=== PATIENT | female | born 1950 | race Caucasian/White ===

== ENCOUNTER 2019-01-13 20:49 | Inpatient (IN) | payer BC ==
[~2019-01-13] VITALS: Ht 160 cm; Wt 70.3 kg
[2019-01-13] MEDS ORDERED: ALBUTEROL SULFATE 2.5 MG/3 ML NEBU NEB ONE (21:00)
[2019-01-13] MEDS ORDERED: IV NORMAL SALINE 1000 ML BAG IV ONE ×2 (21:00→21:45)
[2019-01-13] MEDS ORDERED: IPRATROPIUM BROMIDE 0.5 MG/2.5 ML NEBU NEB ONE (21:00)
[2019-01-13] MEDS ORDERED: BENZ200C53 PO (21:05)
[2019-01-13] MEDS ORDERED: ALBU18HF2 INH (21:05)
[2019-01-13] MEDS ORDERED: AZIT250T PO (21:05)
[2019-01-13] MEDS ORDERED: PRED10TA23 PO (21:05)
--- NOTE | 2019-01-13 21:05 | NUR ---
Dr. Maloney at bedside for MSE
[2019-01-13 21:14] LABS: BASOPHILS % (AUTO) 0.3 % (0.0-2.0); HEMOGLOBIN 11.7 g/dL (10.9-14.3); LYMPHOCYTES # (AUTO) 1.9 K/uL (20.0-40.0); LYMPHOCYTES % (AUTO) 12.6 % (20.5-51.5); MEAN CORPUSCULAR HEMOGLOBIN 30.7 uug (24.7-32.8); MEAN CORPUSCULAR HGB CONC 33 g/dL (32.3-35.6); MEAN CORPUSCULAR VOLUME 92.2 fL (75.5-95.3); MONOCYTES # (AUTO) 0.7 K/uL (2.0-10.0); MONOCYTES % (AUTO) 4.5 % (0.0-11.0); NEUTROPHILS # (AUTO) 12.4 K/uL (1.8-8.9); NEUTROPHILS % (AUTO) 82.6 % (38.5-71.5); PLATELET COUNT (AUTO) 291 K/uL (179-408)
[2019-01-13 21:21] LABS: CREATININE 1.4 mg/dL (0.6-1.3); POTASSIUM 4.3 mmol/L (3.5-5.1)
[2019-01-13] MEDS ORDERED: CEFTRIAXONE /D5W 50ML IVPB **ER PYXIS IV ONE (21:23)
[2019-01-13] MEDS ORDERED: ALBUTEROL SULFATE 2.5 MG/3 ML NEBU ONE (21:26)
[2019-01-13] MEDS ORDERED: IPRATROPIUM BROMIDE 0.5 MG/2.5 ML NEBU ONE (21:26)
[2019-01-13] MEDS ORDERED: AZITHROMYCIN IV 500 MG in IV DEXTROSE 5% 250 ML IV ONE (21:30)
[2019-01-13] MEDS ORDERED: CEFTRIAXONE 2 G in IV DEXTROSE 5% 100 ML IV ONE (21:30)
[2019-01-13 21:34] LABS: BILIRUBIN,DIRECT 0.2 mg/dL (0.0-0.2); BILIRUBIN,TOTAL 0.5 mg/dL (0.2-1.0); TOTAL PROTEIN, SERUM 7.9 g/dL (6.4-8.2)
[2019-01-13] MEDS ORDERED: AZITHROMYCIN 500MG/ D5W 250ML IVPB **ER PYXIS ONLY IV ONE (22:05)
--- NOTE | 2019-01-13 22:07 | NUR ---
patient in bed with family at bedside. Breathing even and unlabored. NAD noted.
[2019-01-13] MEDS ORDERED: ACETAMINOPHEN 325 MG TABLET PO PRN (22:45)
[2019-01-13] MEDS ORDERED: MORPHINE SULFATE 2 MG/1 ML DISP.SYRIN IV PRN ×2 (22:45)
[2019-01-13] MEDS ORDERED: ONDANSETRON 4 MG/2 ML VIAL IV PRN (22:45)
[2019-01-13 22:46] LABS: *BILIRUBIN,URIN NEGATIVE (NEGATIVE); *BLOOD, URINE 1+ (NEGATIVE); *CLARITY,URINE CLEAR (CLEAR); *COLOR,URINE YELLOW (YELLOW); *KETONES,URINE NEGATIVE (NEGATIVE); *UROBILINOGEN,URINE 0.2 E.U./dl (NORMAL); LEUKOCYTE ESTERASE ,URINE NEGATIVE (NEGATIVE); NITRITE, URINE NEGATIVE (NEGATIVE); UGLUCOSE NEGATIVE (NEGATIVE)
[2019-01-13 22:50] VITALS: BP 155/74
[2019-01-13 23:08] LABS: BACTERIA,URINE NONE SEEN /HPF (NONE SEEN); RBC,URINE 0-3 /HPF (0-3); SQUAMOUS EPITHELIAL CELL,UR FEW /HPF (NONE SEEN); WBC,URINE 0-3 /HPF (0-3)
[2019-01-13] MEDS ORDERED: hydrALAZINE HCL 25 MG TABLET PO SCH (23:15)
--- NOTE | 2019-01-13 23:15 | NUR ---
Endorsed to Kayla MASON remainder of fluid challenge
[2019-01-13] MEDS: ZOLPIDEM 5 MG TABLET PO PRN (23:43)
[2019-01-14] MEDS: IV NS 1000 ML 1,000 ML IV PRN ×2 (00:14→19:44)
[2019-01-14 00:36] VITALS: BP 140/71
[2019-01-14] MEDS ORDERED: GUAIFENESIN/DEXTROMETHORPHAN 5 ML UDC PO PRN (00:45)
[2019-01-14] MEDS: ALBUTEROL SULFATE 2.5 MG/3 ML NEBU NEB PRN ×2 (01:22→06:14)
[2019-01-14 04:00] VITALS: BP 152/80
[2019-01-14] MEDS ORDERED: SIMV-49 PO (05:36)
[2019-01-14] MEDS ORDERED: TRIA1CAP6 PO (05:37)
[2019-01-14] MEDS: hydrALAZINE HCL 25 MG TABLET PO PRN (05:41)
--- NOTE | 2019-01-14 06:13 | NUR ---
patient received from ER. ID band on. belongings list signed. admissions process complete. no signs of acute distress and v/s stable throughout shift. admit orders received. Dr. triplett placed order for Ambien 10mg qhs prn. Darien Duong, placed order for Robitussin DM q6h prn for cough. administered both medications and patient tolerated well. critical lab value reported to me for LA at 3.0, Dr. Triplett contacted, no new orders. safety and comfort measures provided. bed in lowest position, side rails up x2, and bed alarm on. NSR on tele monitor. will continue plan of care and endorse to morning shift accordingly.
--- NOTE | 2019-01-14 06:13 | NUR ---
hydralazine administered for bp >150. patient tolerated well. will f/u.
[2019-01-14] MEDS: PANTOPRAZOLE SODIUM 40 MG TABLET.DR PO SCH (06:23)
[2019-01-14 06:53] LABS: BASOPHILS # (AUTO) 0.1 K/uL (0.0-8.0); BASOPHILS % (AUTO) 0.7 % (0.0-2.0); EOSINOPHILS % (AUTO) 0.1 % (0.0-7.0); HEMATOCRIT 30.7 % (31.2-41.9); HEMOGLOBIN 10.3 g/dL (10.9-14.3); LYMPHOCYTES # (AUTO) 2.5 K/uL (20.0-40.0); LYMPHOCYTES % (AUTO) 18.7 % (20.5-51.5); MEAN CORPUSCULAR HEMOGLOBIN 31.2 uug (24.7-32.8); MEAN CORPUSCULAR HGB CONC 34 g/dL (32.3-35.6); MEAN CORPUSCULAR VOLUME 92.8 fL (75.5-95.3); MONOCYTES # (AUTO) 1.3 K/uL (2.0-10.0); MONOCYTES % (AUTO) 9.3 % (0.0-11.0); NEUTROPHILS # (AUTO) 9.6 K/uL (1.8-8.9); NEUTROPHILS % (AUTO) 71.2 % (38.5-71.5); PLATELET COUNT (AUTO) 243 K/uL (179-408); WHITE BLOOD COUNT (AUTO) 13.5 K/uL (3.8-11.8)
[2019-01-14 07:16] LABS: THYROID STIMULATING HORMONE 1.467 mIU/mL (0.358-3.740)
[2019-01-14 07:23] LABS: BILIRUBIN,TOTAL 0.2 mg/dL (0.2-1.0); CREATININE 1.2 mg/dL (0.6-1.3); MAGNESIUM 2.2 mg/dL (1.8-2.4); PHOSPHOROUS 2.8 mg/dL (2.5-4.9); POTASSIUM 3.7 mmol/L (3.5-5.1); TOTAL PROTEIN, SERUM 6.3 g/dL (6.4-8.2)
--- NOTE | 2019-01-14 07:47 | NUR ---
critical lab value reported to me by WALLACE viera 2.8 trending in expected direction. MD will not be contacted. will endorse to morning nurse to continue to monitor.
--- NOTE | 2019-01-14 08:15 | NUR ---
Received patient awake in bed. AAOx4. Productive cough noted. IV on R AC intact and patent with IVF fluids at this time. Call light within reach. Will continue to monitor.
[2019-01-14] MEDS: GUAIFENESIN/DEXTROMETHORPHAN 5 ML UDC PO SCH ×5 (08:16→23:37)
[2019-01-14] MEDS: BENZONATATE 100 MG CAPSULE PO SCH ×3 (08:19→22:15)
[2019-01-14] MEDS ORDERED: TRIAMTERENE/HCTZ 37.5-25 MG TABLET PO SCH (09:00)
[2019-01-14] MEDS ORDERED: Medication Not On Formulary EA (Triamterene/Hydrochlorothiazid (Triamterene-Hctz 37.5-25 PO SCH (09:00)
[2019-01-14 11:07] VITALS: BP 146/61
[2019-01-14] MEDS: ALBUTEROL SULFATE 1.25 MG/3 ML NEBU NEB SCH ×4 (11:12→23:28)
[2019-01-14] MEDS: IPRATROPIUM BROMIDE 0.5 MG/2.5 ML NEBU NEB SCH ×4 (11:12→23:28)
[2019-01-14] MEDS: TRIAMTERENE/HCTZ 75-50 MG TABLET PO SCH (12:30)
[2019-01-14] MEDS: methylPREDNISolone SOD SUCC 40 MG/ML VIAL IV SCH ×3 (12:31→22:14)
[2019-01-14 15:11] VITALS: BP 143/63
[2019-01-14] MEDS: BENZOCAINE/MENTH/CETYLPYRD LOZENGE MM PRN ×2 (15:59→22:15)
[2019-01-14 16:42] LABS: *BILIRUBIN,URIN NEGATIVE (NEGATIVE); *BLOOD, URINE NEGATIVE (NEGATIVE); *CLARITY,URINE CLEAR (CLEAR); *COLOR,URINE YELLOW (YELLOW); *KETONES,URINE NEGATIVE (NEGATIVE); *UROBILINOGEN,URINE 0.2 E.U./dl (NORMAL); LEUKOCYTE ESTERASE ,URINE NEGATIVE (NEGATIVE); NITRITE, URINE NEGATIVE (NEGATIVE); PH,URINE 5.5 (5.0-8.0); UGLUCOSE NEGATIVE (NEGATIVE)
[2019-01-14 17:10] LABS: *CREATININE,URINE 39.7 mg/dL (30-125); *URINE TOTAL PROTEIN RANDOM 19.7 mg/dL (<150/24HR)
[2019-01-14] MEDS ORDERED: SIMVASTATIN 40 MG TABLET PO SCH (18:00)
--- NOTE | 2019-01-14 18:00 | NUR ---
Patient to have dry cough at this time. Verbalize to feel a little better. All needs met. Safety measures implemented. Will endorse care accordingly.
[2019-01-14] MEDS: CEFTRIAXONE 1 G in IV DEXTROSE 5% 50 ML IV SCH (20:12)
[2019-01-14 20:58] VITALS: BP 139/54
[2019-01-14] MEDS: AZITHROMYCIN IV 500 MG in IV DEXTROSE 5% 250 ML IV SCH (22:14)
[2019-01-14] MEDS: ZOLPIDEM 5 MG TABLET PO PRN (23:37)
[2019-01-15] MEDS: GUAIFENESIN/DEXTROMETHORPHAN 5 ML UDC PO SCH ×6 (02:59→23:40)
[2019-01-15 04:45] VITALS: BP 154/76
[2019-01-15] MEDS: PANTOPRAZOLE SODIUM 40 MG TABLET.DR PO SCH (06:00)
[2019-01-15] MEDS: BENZONATATE 100 MG CAPSULE PO SCH ×3 (06:00→21:07)
[2019-01-15] MEDS: hydrALAZINE HCL 25 MG TABLET PO PRN ×2 (06:01→20:19)
[2019-01-15] MEDS: methylPREDNISolone SOD SUCC 40 MG/ML VIAL IV SCH ×3 (06:01→21:07)
[2019-01-15 06:28] LABS: BASOPHILS # (AUTO) 0.1 K/uL (0.0-8.0); BASOPHILS % (AUTO) 0.9 % (0.0-2.0); HEMATOCRIT 31.3 % (31.2-41.9); HEMOGLOBIN 10.3 g/dL (10.9-14.3); LYMPHOCYTES # (AUTO) 1.4 K/uL (20.0-40.0); LYMPHOCYTES % (AUTO) 13.7 % (20.5-51.5); MEAN CORPUSCULAR HEMOGLOBIN 30.2 uug (24.7-32.8); MEAN CORPUSCULAR HGB CONC 33 g/dL (32.3-35.6); MEAN CORPUSCULAR VOLUME 91.6 fL (75.5-95.3); MONOCYTES # (AUTO) 0.5 K/uL (2.0-10.0); MONOCYTES % (AUTO) 4.9 % (0.0-11.0); NEUTROPHILS # (AUTO) 8.2 K/uL (1.8-8.9); NEUTROPHILS % (AUTO) 80.5 % (38.5-71.5); PLATELET COUNT (AUTO) 264 K/uL (179-408); RED BLOOD CELL COUNT(AUTO) 3.42 MIL/uL (3.63-4.92); WHITE BLOOD COUNT (AUTO) 10.2 K/uL (3.8-11.8)
--- NOTE | 2019-01-15 06:39 | NUR ---
Patient slept intermittently. Still noted w/ episode of dry cough. No SOB noted. NPO post midnight for scheduled US of liver this AM. All needs attended. Will endorse accordingly
[2019-01-15 06:40] LABS: BILIRUBIN,DIRECT 0.1 mg/dL (0.0-0.2); BILIRUBIN,TOTAL 0.3 mg/dL (0.2-1.0); MAGNESIUM 2.3 mg/dL (1.8-2.4); PHOSPHOROUS 3.4 mg/dL (2.5-4.9); POTASSIUM 4.2 mmol/L (3.5-5.1); TOTAL PROTEIN, SERUM 6.5 g/dL (6.4-8.2)
[2019-01-15] MEDS: IPRATROPIUM BROMIDE 0.5 MG/2.5 ML NEBU NEB SCH ×5 (07:27→23:21)
[2019-01-15] MEDS: ALBUTEROL SULFATE 1.25 MG/3 ML NEBU NEB SCH ×5 (07:28→23:21)
--- NOTE | 2019-01-15 07:45 | NUR ---
Patient in no acute distress. Dry cough noted. Safety measures implemented. Call light within reach. Will continue to monitor.
--- NOTE | 2019-01-15 08:30 | NUR ---
0745 Robitussin not administered. Patient NPO for liver US. Next dose to be given at 1145.
[2019-01-15] MEDS ORDERED: TRIAMTERENE/HCTZ 37.5-25 MG TABLET PO SCH (09:00)
[2019-01-15] MEDS: TRIAMTERENE/HCTZ 75-50 MG TABLET PO SCH (09:41)
[2019-01-15] MEDS ORDERED: MESA1.2T PO (10:40)
[2019-01-15 11:30] VITALS: BP 138/62
[2019-01-15 15:34] VITALS: BP 148/74
[2019-01-15] MEDS: IV NS 1000 ML 1,000 ML IV PRN (16:15)
[2019-01-15] MEDS ORDERED: HOME MED MISCELLANEOUS XX SCH (17:00)
--- NOTE | 2019-01-15 18:02 | NUR ---
Patient tolerating scheduled cough medications and routine breathing treatments. No SOB noted at this time. All needs met. Will endorse care accordingly.
[2019-01-15 19:50] VITALS: BP 152/73
[2019-01-15] MEDS: CEFTRIAXONE 1 G in IV DEXTROSE 5% 50 ML IV SCH (20:18)
[2019-01-15] MEDS: MESALAMINE 1.2 GM PO SCH (20:19)
[2019-01-15] MEDS: AZITHROMYCIN IV 500 MG in IV DEXTROSE 5% 250 ML IV SCH (21:07)
[2019-01-15] MEDS: ZOLPIDEM 5 MG TABLET PO PRN (23:40)
[2019-01-16] MEDS: GUAIFENESIN/DEXTROMETHORPHAN 5 ML UDC PO SCH ×6 (04:38→23:45)
[2019-01-16 04:54] VITALS: BP 122/65
[2019-01-16] MEDS: methylPREDNISolone SOD SUCC 40 MG/ML VIAL IV SCH ×2 (05:29→21:32)
[2019-01-16] MEDS: BENZONATATE 100 MG CAPSULE PO SCH ×3 (05:29→22:39)
[2019-01-16] MEDS: PANTOPRAZOLE SODIUM 40 MG TABLET.DR PO SCH (06:00)
--- NOTE | 2019-01-16 06:51 | NUR ---
Patient slept intermittently. Still w/ episode of dry cough. No SOB noted. All needs attended. Will endorse accordingly
[2019-01-16 07:08] LABS: BILIRUBIN,TOTAL 0.3 mg/dL (0.2-1.0); CREATININE 1.1 mg/dL (0.6-1.3); MAGNESIUM 2.3 mg/dL (1.8-2.4); PHOSPHOROUS 3.7 mg/dL (2.5-4.9); POTASSIUM 4.4 mmol/L (3.5-5.1); TOTAL PROTEIN, SERUM 6.3 g/dL (6.4-8.2)
[2019-01-16] MEDS: ALBUTEROL SULFATE 1.25 MG/3 ML NEBU NEB SCH ×4 (07:11→20:42)
[2019-01-16] MEDS: IPRATROPIUM BROMIDE 0.5 MG/2.5 ML NEBU NEB SCH ×4 (07:11→20:42)
[2019-01-16 07:36] LABS: BASOPHILS % (AUTO) 0.1 % (0.0-2.0); HEMATOCRIT 32.7 % (31.2-41.9); HEMOGLOBIN 10.7 g/dL (10.9-14.3); LYMPHOCYTES # (AUTO) 1.9 K/uL (20.0-40.0); LYMPHOCYTES % (AUTO) 12.9 % (20.5-51.5); MEAN CORPUSCULAR HEMOGLOBIN 30.9 uug (24.7-32.8); MEAN CORPUSCULAR HGB CONC 33 g/dL (32.3-35.6); MEAN CORPUSCULAR VOLUME 94.2 fL (75.5-95.3); MONOCYTES # (AUTO) 0.9 K/uL (2.0-10.0); MONOCYTES % (AUTO) 6.1 % (0.0-11.0); NEUTROPHILS # (AUTO) 11.9 K/uL (1.8-8.9); NEUTROPHILS % (AUTO) 80.9 % (38.5-71.5); PLATELET COUNT (AUTO) 298 K/uL (179-408); RED BLOOD CELL COUNT(AUTO) 3.47 MIL/uL (3.63-4.92)
[2019-01-16 07:38] LABS: WHITE BLOOD COUNT (AUTO) 14.8 K/uL (3.8-11.8)
[2019-01-16 08:04] LABS: BAND % (MANUAL) 2 % (0-10); LYMPHOCYTES % (MANUAL) 16 % (20-40); METAMYELOCYTES % 3 % (0-1); MONOCYTES % (MANUAL) 6 % (2-10); MYELOCYTES % 5 % (0-0); NEUTROPHILS % (MANUAL) 68 % (42-75)
[2019-01-16] MEDS: TRIAMTERENE/HCTZ 75-50 MG TABLET PO SCH (09:39)
[2019-01-16] MEDS: MESALAMINE 1.2 GM PO SCH ×4 (09:39→20:39)
[2019-01-16 11:06] VITALS: BP 137/64
[2019-01-16 15:06] VITALS: BP 118/55
--- NOTE | 2019-01-16 19:00 | NUR ---
Patient AAOx4. Dry nonproductive cough noted to improve. In no acute distress. Vital signs are stable. Safety measures implemented and effective. Will endorse care accordingly.
--- NOTE | 2019-01-16 19:50 | NUR ---
PATIENT ALERT ORIENTED, NO SOB NO CHEST PAIN. PATIENT STILL HAS NON PRODUCTIVE COUGH, CONT ON HHN TX, AND COUGH MEDICATIONS WITH HELP. PATIENT IN ROOM AIR NO DESATURATION NOTED, AFEBRILE, CONT ON ABX, CONT TO MONITOR.
[2019-01-16 20:18] VITALS: BP 139/68
[2019-01-16] MEDS: CEFTRIAXONE 1 G in IV DEXTROSE 5% 50 ML IV SCH (20:22)
[2019-01-16] MEDS: AZITHROMYCIN IV 500 MG in IV DEXTROSE 5% 250 ML IV SCH (21:18)
[2019-01-16] MEDS: ZOLPIDEM 5 MG TABLET PO PRN (23:47)
[2019-01-17] MEDS: ALBUTEROL SULFATE 2.5 MG/3 ML NEBU NEB PRN (01:21)
[2019-01-17] MEDS: GUAIFENESIN/DEXTROMETHORPHAN 5 ML UDC PO SCH ×3 (05:06→11:56)
--- NOTE | 2019-01-17 05:33 | NUR ---
PATIENT SLEPT MOST OF THE NIGHT, PATIENT COUGH WAS SUBSIDED, CONT ON HHN TX ORDERED. PATIENT HAS NO COMPLAIN OF PAIN NOR DISCOMFORT. CONT TO MONITOR.
[2019-01-17 05:36] VITALS: BP 117/47
[2019-01-17] MEDS: BENZONATATE 100 MG CAPSULE PO SCH ×2 (06:37→13:13)
[2019-01-17] MEDS: PANTOPRAZOLE SODIUM 40 MG TABLET.DR PO SCH (06:37)
--- NOTE | 2019-01-17 08:00 | NUR ---
awake alert and oriented, states feeling much better, would be discharged today, up and about, breathing treatment given by RT. Breakfast served, denies of pain, needs attended, call light within reach
[2019-01-17] MEDS: IPRATROPIUM BROMIDE 0.5 MG/2.5 ML NEBU NEB SCH ×2 (08:12→11:28)
[2019-01-17] MEDS: ALBUTEROL SULFATE 1.25 MG/3 ML NEBU NEB SCH ×2 (08:12→11:28)
[2019-01-17] MEDS: methylPREDNISolone SOD SUCC 40 MG/ML VIAL IV SCH (09:04)
[2019-01-17] MEDS: TRIAMTERENE/HCTZ 75-50 MG TABLET PO SCH (09:04)
[2019-01-17] MEDS: MESALAMINE 1.2 GM PO SCH ×2 (09:05→13:13)
[2019-01-17 10:53] LABS: BASOPHILS # (AUTO) 0.1 K/uL (0.0-8.0); BASOPHILS % (AUTO) 0.3 % (0.0-2.0); EOSINOPHILS # (AUTO) 0.1 K/uL (0.0-0.7); EOSINOPHILS % (AUTO) 0.5 % (0.0-7.0); HEMATOCRIT 35.6 % (31.2-41.9); HEMOGLOBIN 11.8 g/dL (10.9-14.3); LYMPHOCYTES % (AUTO) 17.6 % (20.5-51.5); MEAN CORPUSCULAR HEMOGLOBIN 30.6 uug (24.7-32.8); MEAN CORPUSCULAR HGB CONC 33 g/dL (32.3-35.6); MEAN CORPUSCULAR VOLUME 92.3 fL (75.5-95.3); MONOCYTES # (AUTO) 0.8 K/uL (2.0-10.0); MONOCYTES % (AUTO) 4.9 % (0.0-11.0); NEUTROPHILS % (AUTO) 76.7 % (38.5-71.5); PLATELET COUNT (AUTO) 358 K/uL (179-408); RED BLOOD CELL COUNT(AUTO) 3.85 MIL/uL (3.63-4.92)
[2019-01-17 11:03] LABS: BILIRUBIN,TOTAL 0.3 mg/dL (0.2-1.0); CREATININE 1.1 mg/dL (0.6-1.3); POTASSIUM 4.3 mmol/L (3.5-5.1); TOTAL PROTEIN, SERUM 6.5 g/dL (6.4-8.2)
[2019-01-17] MEDS ORDERED: METH4TAB3 PO (11:10)
[2019-01-17] MEDS ORDERED: ALBU18HF2 INH ×2 (11:10→11:12)
[2019-01-17] MEDS ORDERED: IPRA12.9 INH (11:10)
--- NOTE | 2019-01-17 11:15 | NUR ---
seen by Marybel Green-pt is being discharged home, pt wants to take a shower prior to discharge.
[2019-01-17 12:00] VITALS: BP 132/58
--- NOTE | 2019-01-17 13:30 | NUR ---
shower taken, states boyfriend to pick her up, no distress noted
--- NOTE | 2019-01-17 14:10 | NUR ---
discharge instructions given- verbalized understanding, preferred pharmacy was called and prescriptions ready for [employer] spot picker, pt refused our pharmacist for med instructions. saline lock been out- no swelling/redness noted on site, home meds from pharmacy returned to pt
--- NOTE | 2019-01-17 14:22 | NUR ---
escorted to car ambulatory with all her belongings under boyfriend's care in stable condition
== END 2019-01-17 14:22 | disposition home or self-care (01) | DRG 871 ==
LOC: ER 20:50 → TELE3 22:14 → MEDSURG3 01-14 17:10
PROVIDERS: ADMIT Internal Medicine; ATTEND Nurse Practitioner Acute Care
DX: A41.9 Sepsis, unspecified organism (principal); J18.1 Lobar pneumonia, unspecified organism; R65.21 Severe sepsis with septic shock; N17.0 Acute kidney failure with tubular necrosis; E87.2 Acidosis; J91.8 Pleural effusion in other conditions classified elsewhere; J98.11 Atelectasis; I10 Essential (primary) hypertension; J20.8 Acute bronchitis due to other specified organisms; E78.5 Hyperlipidemia, unspecified; Z88.2 Allergy status to sulfonamides; Z83.3 Family history of diabetes mellitus; Z80.8 Family history of malignant neoplasm of other organs or systems
CPT/HCPCS: 36415; 70030-TC; 71045; 71250; 76705; 83605; 83735; 84100; 84156; 84300; 84443; 85025; 87040; 87070; 87400; 93005; 93307; 94640; 94664; A4663; G0378; J0456; J0696; J2920; J3590; J7030; J7060